=== PATIENT | male | born 1935 | race Caucasian/White ===

== ENCOUNTER → 2017-03-07 | Outpatient (CLI) | payer BC | LOC: CIMAGING 13:24 | PROVIDERS: ATTEND Internal Medicine | DX: R91.1 Solitary pulmonary nodule (principal); Z87.891 Personal history of nicotine dependence; I25.10 Atherosclerotic heart disease of native coronary artery without angina pectoris | CPT/HCPCS: 71250-PO ==

== ENCOUNTER → 2017-05-22 | Outpatient (CLI) | payer BC | LOC: CIMAGING 13:23 | PROVIDERS: ATTEND Internal Medicine | DX: R06.6 Hiccough (principal); M45.4 Ankylosing spondylitis of thoracic region | CPT/HCPCS: 71046-PO ==

== ENCOUNTER → 2018-05-28 | Outpatient (CLI) | payer BC | LOC: CIMAGING 10:00 | PROVIDERS: ATTEND Internal Medicine | DX: S39.92XA Unspecified injury of lower back, initial encounter (principal) | CPT/HCPCS: 72100-PO ==

== ENCOUNTER → 2018-06-10 | Outpatient (CLI) | payer BC | LOC: BRMIMAGING 08:12 | PROVIDERS: ATTEND Internal Medicine | DX: I70.0 Atherosclerosis of aorta (principal) ==